=== PATIENT | female | born 1965 | race Caucasian/White ===

== ENCOUNTER 2019-10-01 08:35 | Observation (INO) ==
--- NOTE | 2019-09-17 16:25 | PAT Medication Instructions ---
Medication Instructions Date of Service September 17, 2019 Home Medications naproxen sodium 220 mg PO BID PRN ASK your surgeon for instructions naproxen sodium 220 mg PO BID PRN Other Notes If you have any questions please call us at [phone] or [phone] or [phone] or [phone]
--- NOTE | 2019-09-18 13:19 | Anesthesiology Consultation ---
Date of Service September 18, 2019 Assessment & Plan (1) Encounter for pre-operative examination: TEST AM DOS Chart Review Chart Review: Acceptable Risk for Surgery (pending pre op testing) and Patient seen in Pre Admission Testing Teaching & Discussion Instructed NPO after midnight before surgery, except medications with 15 cc of water. Medication instructions provided according to the PAT guidelines. History Surgery Operation Date: 10/01/19 10:00 Proposed Procedures p Robotic Total Laparoscopic Hysterectomy - Aleisha Allen DO Height/Weight Height: 5 ft 8 in Weight: 81.647 kg Allergies Allergy/AdvReac Type Severity Reaction Status Date / Time No Known Allergies Allergy Verified 09/18/19 11:48 Medications Home Medications Medication Instructions Recorded Confirmed Last Taken naproxen sodium 220 mg PO BID PRN 09/07/19 09/18/19 Unknown Past Medical History Medical History Migraine Osteoarthritis Uterine fibroid Exercise / Class Metabolic Activity II 4-5 Yardwork/Stairs/Walk up hill Past Surgical History Surgical History History of arthroscopy of right knee X 2 History of colonoscopy History of endometrial ablation History of laparoscopy FOR CYSTS History of tonsillectomy History of wisdom tooth extraction Hx of [place]roscopy of [place] 2 [place] [facility] [place] Hx of toe surgery RIGHT LITTLE TOE Nausea and vomiting after administration of anesthetic agent Past Anesthesia History No Hx of Anesthesia Complications (other than PONV) and No Family Hx of Anesthesia Complications History of PONV History of PONV and Hx of Motion Sickness Social History Smoking Status: Never smoker Do You Dip or Chew Tobacco: No Hx Alcohol Use: No Hx Substance Use: No substance use type: does not use Review of Systems Pt denies any recent chest pain, shortness of breath, palpitations, cough, fever or URI. Physical Exam Vital Signs BP: 142/84 (pt had endometrial biopsy just TECHNICAL INSPECTOR, is in significant pain; reports BP was WNL at surgeon's office today) P: 86bpm SPO2: 97% RA T: 97.9 F R: 16 ENMT Mouth: no dental restorations, no chipped teeth and no loose teeth Thyromental Distance: > or= 3.5 Finger Breadths (3.5) Mallampati Class: I Neck normal visual inspection; neck extension not limited Respiratory normal respiratory effort Auscultation: lungs clear to auscultation bilaterally Cardiovascular Rate/Rhythm: regular rate and regular rhythm Heart Sounds: no murmur
--- NOTE | 2019-09-18 14:04 | Electrocardiogram Report ---
Test Reason : Blood Pressure : / mmHG Vent. Rate : 066 BPM Atrial Rate : 066 BPM P-R Int : 108 ms QRS Dur : 092 ms QT Int : 422 ms P-R-T Axes : 061 080 058 degrees QTc Int : 442 ms Sinus rhythm with short ID Otherwise normal ECG No previous ECGs available Confirmed by Good Torrez ([id number]) on 09/18/2019 2:03:45 PM Referred By: Aleisha Allen Confirmed By:Good Torrez
[2019-09-18 14:15] LABS: Basophils # (auto) 0.05 K/uL (0-0.2); Basophils % (auto) 0.6 %; Eosinophils # (auto) 0.06 K/uL (0-0.5); Eosinophils % (auto) 0.8 %; Hematocrit (blood only) 44.1 % (37-47); Hemoglobin 15.1 g/dL (12.0-16.0); Immature Granulocytes # (auto) 0.01 K/uL (0.00-0.02); Immature Granulocytes % (auto) 0.1 %; Lymphocytes # (auto) 1.88 K/uL (1.2-3.4); Lymphocytes % (auto) 23.7 %; Mean Corpuscular Hemoglobin 33.2 pg (25-34); Mean Corpuscular Hgb Conc 34.2 g/dL (32-36); Mean Corpuscular Volume 96.9 fL (80-100); Mean Platelet Volume 10.3 fL (7.4-10.4); Monocytes # (auto) 0.71 K/uL (0.11-0.59); Monocytes % (auto) 8.9 %; Neutrophils # (auto) 5.23 K/uL (1.4-6.5); Neutrophils % (auto) 65.9 %; Platelet Count 277 K/uL (130-400); RDW Coefficient of Variation 11.8 % (11.5-14.5); Red Blood Count 4.55 M/uL (4.2-5.4); White Blood Count 7.94 K/uL (4.8-10.8)
[2019-09-18 14:29] LABS: Appearance Urine Clear (Clear); Bacteria Urine Automated Negative (Negative); Bilirubin Urine Negative (Negative); Blood Urine 3+ (Negative); Color Urine Yellow; Epithelial Cell Urine Auto >30 /lpf (0-5); Glucose Urine UA Negative (Negative); Ketones Urine 1+ (Negative); Leukocyte Esterase Urine Trace (Negative); Nitrite Urine Negative (Negative); Protein Urine Negative (Negative); RBC Urine Automated >30 /hpf (0-4); Specific Gravity Urine 1.012 (1.000-1.030); Urobilinogen Urine Negative (Negative)
[2019-09-18 16:21] LABS: BUN Creatinine Ratio 19.2 (10-20); Calcium 9.5 mg/dl (8.5-10.1); Creatinine Clr Calc Pharmacy 83.3 ml/min; Est GFR (African American) 86.4; Est GFR (Non-African American) 74.5; Potassium 4.2 mmol/L (3.5-5.1)
[~2019-10-01 08:35] MED LIST: CEFAZOLIN 2000MG 2,000 MG/15 ML SYR IV SCH; LR 15ML/HR IV SCH; SCOPOLAMINE 1.5 MG TDSY TD SCH
[2019-10-01] MEDS ORDERED: ONDANSETRON INJ 2 MG/ML 2 ML VIAL IV PRN ×2 (09:23→14:05)
[2019-10-01] MEDS ORDERED: ePHEDrine sulfate 50 MG/ML AMP IV PRN (09:23)
[2019-10-01] MEDS ORDERED: fentaNYL citrate 100 MCG/2 ML VIAL IV PRN (09:23)
[2019-10-01] MEDS ORDERED: ATROPINE SULFATE 0.1 MG/ML 10ML SYR IV PRN (09:23)
[2019-10-01 09:35] LABS: Pregnancy Test, Serum Negative (Negative)
[2019-10-01] MEDS ORDERED: BUPIVACAINE 0.5 % 5 MG/1 ML MPF 30ML VIAL ONE (10:35)
[2019-10-01] MEDS ORDERED: PROPOFOL IV EMULSION 10 MG/ML 100 ML VIAL IV ONE (10:36)
[2019-10-01] MEDS ORDERED: ACETAMINOPHEN 1000 MG/100 ML IV IV ONE (10:36)
--- NOTE | 2019-10-01 10:43 | History & Physical Bridge Note ---
Date of Service October 01, 2019 History & Physical Bridge Note I have examined the patient, reviewed the History & Physical and in the interval since the performance of the History & Physical I have noted the following changes of clinical significance: no changes noted. Plans for robotic-assisted total laparoscopic hysterectomy and bilateral salpingoophorectomy, cystoscopy, removal of right labial mass (skin near mass marked today).
[2019-10-01] MEDS ORDERED: NEOSTIGMINE METHYLSULFATE 5 MG/5 ML SYR ONE (10:50)
[2019-10-01] MEDS ORDERED: LIDOCAINE HCL 2% 2 ML VIAL/AMP(20MG/ML) INFIL ONE (10:50)
[2019-10-01] MEDS ORDERED: ONDANSETRON INJ 2 MG/ML 2 ML VIAL ONE (10:50)
[2019-10-01] MEDS ORDERED: PROPOFOL IV EMULSION 10 MG/ML 20 ML VIAL IV ONE (10:50)
[2019-10-01] MEDS ORDERED: ROCURONIUM BROMIDE 10 MG/ML 5 ML VIAL ONE ×2 (10:50→12:23)
[2019-10-01] MEDS ORDERED: MIDAZOLAM HCL 1 MG/ML 2ML VIAL ONE (10:50)
[2019-10-01] MEDS ORDERED: DEXAMETHASONE SOD INJ 4 MG/ML VIAL ONE (10:50)
[2019-10-01] MEDS ORDERED: GLYCOPYRROLATE 0.2 MG/ML VIAL ONE (10:50)
[2019-10-01] MEDS ORDERED: fentaNYL citrate 100 MCG/2 ML VIAL ONE ×3 (10:50→12:01)
[2019-10-01] MEDS ORDERED: TISSEEL FIBRIN SEALANT 10ML TOP ONE (13:00)
[2019-10-01] MEDS ORDERED: METHYLENE BLUE 0.5% 10 ML VIAL ONE (13:19)
--- NOTE | 2019-10-01 13:55 | Operative Report ---
PG Post Operative Report Pre & Post Diagnosis Operation Date: 10/01/19 10:10 Pre-Op Diagnosis: Pelvic Pain, fibroid uterus, Right Labial Minora Mass Post-Op Diagnosis: Pelvic Pain, fibroid uterus, Right Labial Minora Mass I identified the patient and participated in the time-out.: Yes Procedure Operation Date: 10/01/19 10:10 Actual Procedures p Robotic Total Laparoscopic Hysterectomy with Bilateral Salpingo-oopherectomy, Cystoscopy, and Removal of Right Labia Minora Mass(Right) - Aleisha Allen DO Surgeon Aleisha Allen DO Communications Executive Ken Griffin MD Estimated Blood Loss 10 Findings Consistent with Post-Op Diagnosis Uterus with large right-sided fibroid. Normal appearing ovaries, tubes. Right labia minora with small palpable hard mass. Specimens Uterus/cervix, bilateral tubes, bilateral ovaries. Labia minora mass Drains dunlap, clear yellow Anesthesia Type General Complications none Disposition Accompanied Patient To Recovery: No Disposition: Recovery Room Indications Patient is a 54-year-old G2, P2 who has a history of endometrial ablation, therefore has not had menstrual cycles in many years. She reports right lower quadrant pain and bloating. 08/06/2019, she underwent pelvic ultrasound for this, the findings were as follows: Uterus measuring 7.3 x 6 x 4.3 cm for total volume of 98.6 cc. Uterine shape is irregular, and anteverted position. Endometrium was difficult to measure due to her ablation history. There were 3 measured fibroids. A right lateral questionably pedunculated fibroid measuring 4 x 5.2 x 3.6 cm for total of 38 cc. There were 2 posterior intramural fibroids both less than 2 cm. Right ovary was normal. Left ovary showed a small simple cystic structure less than 2 cm. No free fluid in the pelvis. These ultrasound findings are similar to her ultrasound performed in 2016. She also has a small right labial mass, that has been felt to be benign, but is bothersome to her and she would like this removed also. Pertinent surgical history is endometrial ablation and laparoscopic removal of ovarian cysts in her distant past. Description of Procedure The patient was seen in the preoperative holding area, where risks benefits and alternatives to surgery reviewed. She elected to proceed with the case. She was taken to the operating room, where general anesthesia was administered. She is prepared and draped in the usual sterile fashion in the dorsolithotomy position with feet feet in yellowfin stirrups. 2 g of Ancef was administered preoperatively. Timeout was confirmed. A Dunlap catheter was placed. A weighted speculum was placed in the vagina, the cervix was visualized and its anterior lip was grasped with a single-tooth tenaculum. The uterine manipulator was suture tied into place, with a suture at 3:00 and 9:00 respectively on the cervix. Gloves were changed, and attention was then turned to the abdomen. A supraumbilical incision was made using a scalpel, and using the optical view scope, the umbilical incision trocar was placed under direct visualization. Bilateral incisions were made, and trochars were placed under direct visualization for a total of 5 including the camera port. There were 3 robotic ports and one assistant director of public works port and one camera port. The patient was placed in steep Trendelenburg position, the robot was docked. Bilateral ureters were visualized peristalsing in the pelvis. It was noted that the uterine manipulator had accidentally perforated through the uterus. I suspect this occurred due to patient's history of endometrial ablation, weakening the uterine wall and making it more likely to perforate. The left infundibulopelvic ligament was then cauterized and transected, the fallopian tube was removed at the layer of the mesosalpinx, and these were placed in the pelvis for further retrieval. Next, the left round ligament was coagulated and transected, and the anterior leaf of the broad ligament was opened. The bladder flap was dissected off the anterior aspect of the uterus. The left uterine vessels were coagulated and transected. in a similar fashion, the right ovary, fallopian tube, right round ligament, and right uterine vessels were coagulated and transected. Next, the cervix was amputated from the vaginal cuff in a circumferential fashion. This was more difficult than typically, due to perforation of the uterus and location of the right fibroid. Therefore, it was performed carefully and slowly. The uterus, bilateral fallopian tubes and ovaries were all delivered through the vagina. They were sent to pathology. The cuff was coagulated, and excellent hemostasis was observed. The vaginal cuff was then reapproximated using V lock suture. It was a running stitch. The pelvis was irrigated and suctioned, and excellent hemostasis was observed. Attention was then turned to the bladder. The Dunlap catheter was removed, cystoscope was inserted, and the cavity was visualized. The bladder appeared healthy, no trauma, no sutures. Bilateral ureteral jets were visualized. The cystoscope was removed, and a new Dunlap catheter was placed in the bladder for postoperative recovery. Attention was then turned back to the pelvis, where Tisseel coagulant was applied to all raw surfaces. Excellent hemostasis was observed on negative pressure test. The robot was undocked and ports were removed. All trocar incision sites were reapproximated, with the assistant director of public works and camera ports receiving a [id number] suture of 0 Vicryl in the fascia, and all skin incisions were reapproximated using 4-0 Vicryl in a subcuticular stitch. Local anesthetic Marcaine injected. Dermabond glue was applied. Attention was then turned to the vulva, where a 15 blade scalpel was used to make a small incision on the internal aspect of the right labia minora over the small mass. The mass was approximately 1 x 0.5 cm. It was gently pushed through the incision, and was freed using Metzenbaum scissors. Bovie cautery was used to obtain excellent hemostasis. A running stitch of 3-0 Vicryl reapproximated the incision edges. All sponge, instrument, needle counts were correct at the conclusion of the case x2. The patient tolerated procedure well, and will be taken to the recovery room in stable and good condition. I attest to the content of the Intraoperative Record and any orders documented therein. Any exceptions are noted below.
[2019-10-01] MEDS ORDERED: SIMETHICONE 80 MG CHEW PO PRN (14:05)
[2019-10-01] MEDS ORDERED: PROMETHAZINE HCL 12.5 MG in SODIUM CHLORIDE 0.9% 50 ML IV PRN (14:05)
[2019-10-01] MEDS ORDERED: OXYCODONE/ACETAMINOPHEN 5mg/325mg TAB PO PRN ×2 (14:05)
--- NOTE | 2019-10-01 14:48 | Anesthesiology Progress Note ---
Date of Service October 01, 2019 Anesthesia Post Procedure Vital Signs Vital Signs: Temp Pulse Pulse Resp BP Pulse Ox 10/01/19 14:40 66 21 120/72 96 10/01/19 14:30 87 17 96/72 L 95 10/01/19 14:20 79 19 130/82 95 10/01/19 14:13 97.2 F L 90 16 139/72 97 10/01/19 09:00 97.5 F L 86 18 139/88 96 Transfer of Care Handoff Completed per policy Notes Mental Status: alert / awake / arousable and participated in evaluation Patient Amnestic to Procedure: Yes Nausea / Vomiting: adequately controlled Pain: adequately controlled Airway Patency, RR, SpO2: stable & adequate BP & HR: stable & adequate Hydration State: stable & adequate Anesthetic Complications: no major complications apparent and Pt Satisfied with anesthetic care
--- NOTE | 2019-10-01 18:09 | Gynecologic Progress Note ---
Date of Service October 01, 2019 Subjective POD#0 doing well. No problems with nausea/vomiting. Is tolerating PO. Ambulating well. Scant vaginal bleeding. Not yet passing gas. Rating pain 5/10, would like to avoid opioids, out of concern that she might feel nausea. Would like to go home. Just had dunlap removed, has not yet urinated. Will plan to discharge home when she is voiding on her own. Discussed postop instructions. Followup in office in 2w and 6w postop. Call office number for any concerns or problems. Results & Data Vital Signs (Past 12 Hours) Vital Signs Temp Pulse Pulse Pulse Resp BP Pulse Ox 10/01/19 17:00 79 18 117/79 98 10/01/19 16:30 88 16 121/80 97 10/01/19 15:30 36.8 C 85 18 113/73 96 10/01/19 15:10 68 16 114/78 94 10/01/19 15:00 36.4 C L 82 18 127/76 94 10/01/19 14:50 74 18 117/74 96 10/01/19 14:40 66 21 120/72 96 10/01/19 14:30 87 17 96/72 L 95 10/01/19 14:20 79 19 130/82 95 10/01/19 14:13 36.2 C L 90 16 139/72 97 10/01/19 09:00 36.4 C L 86 18 139/88 96
--- NOTE | 2019-10-01 18:11 | Discharge Summary ---
Date of Service October 01, 2019 Discharge Data Procedures Performed Operation Date: 10/01/19 10:10 Actual Procedures p Robotic Total Laparoscopic Hysterectomy with Bilateral Salpingo-oopherectomy, (Right) - DO leo Mckeon Cystoscopy(Right) - DO leo Mckeon Excision of Right Labia Minora Mass - Aleisha Allen DO Hospital Course (1) RLQ abdominal pain: Underwent above procedures for RLQ abdominal pain, thought to be related to uterine fibroid. Observed after surgery and discharged to home same day. Followup in 2 and 6 w postop in office. Please see discharge info given to patient for further details. Percocet Rx #15 tabs sent to pharmacy on file.
[2019-10-01] MEDS: IBUPROFEN 600 MG TAB PO PRN ×2 (18:17→23:32)
[2019-10-01] MEDS: CHECK SCOPOLAMINE PATCH PLACEMENT SCH ×2 (18:18→23:30)
[2019-10-02] MEDS: IBUPROFEN 600 MG TAB PO PRN ×2 (05:51→10:04)
[2019-10-02 06:05] LABS: Basophils # (auto) 0.01 K/uL (0-0.2); Basophils % (auto) 0.1 %; Eosinophils # (auto) 0.01 K/uL (0-0.5); Eosinophils % (auto) 0.1 %; Hematocrit (blood only) 40.4 % (37-47); Hemoglobin 13.9 g/dL (12.0-16.0); Immature Granulocytes # (auto) 0.01 K/uL (0.00-0.02); Immature Granulocytes % (auto) 0.1 %; Lymphocytes % (auto) 11.4 %; Mean Corpuscular Hemoglobin 32.8 pg (25-34); Mean Corpuscular Hgb Conc 34.4 g/dL (32-36); Mean Corpuscular Volume 95.3 fL (80-100); Mean Platelet Volume 10.4 fL (7.4-10.4); Monocytes % (auto) 10.6 %; Neutrophils # (auto) 9.54 K/uL (1.4-6.5); Neutrophils % (auto) 77.7 %; Platelet Count 274 K/uL (130-400); RDW Coefficient of Variation 12.1 % (11.5-14.5); RDW Standard Deviation 41.8 fL (36.4-46.3); Red Blood Count 4.24 M/uL (4.2-5.4); White Blood Count 12.27 K/uL (4.8-10.8)
[2019-10-02 06:42] LABS: BUN Creatinine Ratio 12.6 (10-20); Calcium 9.1 mg/dl (8.5-10.1); Creatinine Clr Calc Pharmacy 88.2 ml/min; Est GFR (Non-African American) 81.1; Potassium 3.9 mmol/L (3.5-5.1)
[2019-10-02 08:08] VITALS: BP 134/85; PULSE 68; TEMP 98.8; O2SAT 96
--- NOTE | 2019-10-02 08:19 | Anesthesiology Progress Note ---
Date of Service October 02, 2019 Anesthesia Post Procedure Vital Signs Vital Signs: Temp Pulse Pulse Pulse Resp BP Pulse Ox 10/02/19 07:45 37.1 C 68 18 134/85 96 10/02/19 03:00 37.2 C 72 14 120/70 91 10/01/19 23:20 37.4 C 80 16 123/79 94 10/01/19 19:30 37.7 C H 103 H 18 133/88 95 10/01/19 18:07 84 16 151/85 H 98 10/01/19 17:00 79 18 117/79 98 10/01/19 16:30 88 16 121/80 97 10/01/19 15:30 36.8 C 85 18 113/73 96 10/01/19 15:10 68 16 114/78 94 10/01/19 15:00 36.4 C L 82 18 127/76 94 10/01/19 14:50 74 18 117/74 96 10/01/19 14:40 66 21 120/72 96 10/01/19 14:30 87 17 96/72 L 95 10/01/19 14:20 79 19 130/82 95 10/01/19 14:13 36.2 C L 90 16 139/72 97 10/01/19 09:00 36.4 C L 86 18 139/88 96 Pain Intensity Lower Back: Pain Intensity: 2 Bilateral Abdomen: Pain Intensity: 3 Notes Mental Status: alert / awake / arousable Patient Amnestic to Procedure: Yes Nausea / Vomiting: adequately controlled Pain: adequately controlled Airway Patency, RR, SpO2: stable & adequate BP & HR: stable & adequate Hydration State: stable & adequate Anesthetic Complications: no major complications apparent and Pt Satisfied with anesthetic care
--- NOTE | 2019-10-02 09:04 | Gynecologic Progress Note ---
Date of Service October 02, 2019 Assessment & Plan (1) S/P hysterectomy: Will discharge to home. Instructions reviewed. For urinary retention, I gave her options of trying to void again after straight cath, but this has already been unsuccessful overnight. She agrees that she will need to go home with dunlap catheter, with plans to remove in office in 2-3 days. I have contacted office to set up appointment for patient for removal and voiding trial later this week. She will receive teaching on care for dunlap from RN prior to leaving. Subjective POD#1 sp laparoscopic total hysterectomy with BSO, cysto, removal of small labial mass. She is ambulating, eating/drinking, passing gas. Minimal bleeding. She has struggled with urinating all night. She required straight cath overnight. She just attempted to void again this morning, emptied 350cc on her own, but bladder scan revealed 500+cc still in bladder. Physical Exam Physical Exam: Gen AAOx3 NAD CV: RRR L: CTAB Abd: soft, NTTP. Nondistended. incisions CDI Ext: no edema, no calf tenderness : no bleeding Results & Data Vital Signs (Past 12 Hours) Vital Signs Temp Pulse Resp BP Pulse Ox 10/02/19 07:45 37.1 C 68 18 134/85 96 10/02/19 03:00 37.2 C 72 14 120/70 91 10/01/19 23:20 37.4 C 80 16 123/79 94
== END 2019-10-02 11:30 | disposition home or self-care (01) ==
LOC: ASU 08:35 → 4N 08:35